=== PATIENT | male | born 1935 | race Caucasian/White ===

== ENCOUNTER 2018-08-29 13:37 | Emergency (ER) | payer MEDICARE, BC ==
[~2018-08-29] VITALS: Ht 170.2 cm; Wt 89.5 kg
[~2018-08-29 13:37] MED LIST: ATARAX10 MG PO; CARDURA 2MG2 MG PO; CENTRUM1 TAB PO; CIPRO XR500 MG PO; CLOPIDOGREL; DIAVAN; DIOVAN80 M1 PO; FISH OIL CONC1000 MG PO; FLOMAX 0.40.4 MG/CAP PO; LEVAQUIN 5500 MG/TAB PO; LIPITOR20 MG PO; PREDNISONE20 MG PO; SAW PALMETTO; VASOTEC5 MG PO; VITAMIN C500 MG PO; VITAMIN E-400200 IU PO; ZESTRIL40 MG PO; ZOCOR 20MG20 MG PO
[2018-08-29 13:58] VITALS: BP 188/82; PULSE 93; TEMP 98.7
[2018-08-29] MEDS ORDERED: CRESTOR20 MG PO (14:07)
[2018-08-29] MEDS ORDERED: CENTRUM SILVER1 CTB PO (14:08)
[2018-08-29] MEDS ORDERED: FLOMAX 0.40.4 MG/CAP PO (14:08)
[2018-08-29] MEDS ORDERED: VITAMIN D 1001000 IU (14:10)
[2018-08-29] MEDS ORDERED: CLARITIN-D 10 M1 T24 PO (14:10)
== END 2018-08-29 15:33 | disposition home or self-care (01) ==
LOC: COL.ER 13:37
DX: S62.632A Displaced fracture of distal phalanx of right middle finger, initial encounter for closed fracture (principal); W10.9XXA Fall (on) (from) unspecified stairs and steps, initial encounter; W22.8XXA Striking against or struck by other objects, initial encounter; Z79.02 Long term (current) use of antithrombotics/antiplatelets

== ENCOUNTER 2021-06-14 08:55 | Emergency (ER) | payer MEDICARE, BC ==
[~2021-06-14] VITALS: Ht 170.2 cm; Wt 74.5 kg
[~2021-06-14 08:55] MED LIST changes: +CENTRUM SILVER1 CTB PO; +CLARITIN-D 10 M1 T24 PO; +CRESTOR20 MG PO; +VITAMIN D31000 I1 PO
[2021-06-14 09:16] VITALS: TEMP 98.1
[2021-06-14 10:11] LABS: BASO % 0.1 % (0.0-2.0); EOS % 0.1 % (0-4.0); GRAN # 7.8 K/mm3 (1.4-6.5); GRAN % 81.8 % (42.2-75.2); HEMATOCRIT 42.2 % (42.0-52.0); HEMOGLOBIN 14.2 g/dl (13.5-18.0); LYMPH # 1.2 K/mm3 (1.2-3.4); LYMPH % 12.3 % (20.0-51.0); MEAN CELL VOLUME 96 fl (80.0-100.0); MEAN CORPUSCULAR HEMOGLOBIN 32 pg (27.0-31.0); MEAN CORPUSCULAR HGB CONC 34 g/dl (33.0-37.0); MEAN PLATELET VOLUME 10.3 fl (7.4-10.4); MONO # 0.5 K/mm3 (0.1-0.6); MONO % 5.4 % (1.7-9.3); PLATELET COUNT 139 K/mm3 (130-400); RED BLOOD COUNT 4.41 M/mm3 (4.20-5.60); REDCELL DISTRIBUTION WIDTH-CV 13.1 % (11.5-14.5)
[2021-06-14 10:15] LABS: PROTHROMBIN TIME 10.9 SECONDS (9.7-12.8)
[2021-06-14 10:17] LABS: PARTIAL THROMBOPLASTIN TIME 25.3 SECONDS (26.0-37.0)
[2021-06-14 10:27] LABS: ALBUMIN 3.6 gm/dL (3.4-4.8); BILIRUBIN,TOTAL 0.8 mg/dL (0.2-1.2); CALCIUM 9.9 mg/dL (8.4-10.2); CREATININE, serum 1.57 mg/dL (0.72-1.25); POTASSIUM 4.5 mmol/L (3.5-4.5); TOTAL PROTEIN 6.7 gm/dL (6.2-8.1)
[2021-06-14 10:34] LABS: TROPONIN-I 0.036 ng/mL (0.00-0.033)
[2021-06-14 13:30] VITALS: BP 130/82; PULSE 70
[2021-06-14] MEDS ORDERED: BALSALAZIDE DI750 MG PO (21:16)
[2021-06-14] MEDS ORDERED: PLAVIX 75MG TAB75 MG PO (21:18)
[2021-06-14] MEDS ORDERED: CRESTOR20 MG PO (21:18)
[2021-06-14] MEDS ORDERED: GLUCOPHAGE XR500 M1 PO (21:19)
[2021-06-14] MEDS ORDERED: ZESTRIL30 MG PO (21:19)
[2021-06-14] MEDS ORDERED: FLOMAX 0.40.4 MG/CAP PO (21:20)
[2021-06-14] MEDS ORDERED: PREDNISONE 5MG5 MG PO (21:24)
== END 2021-06-14 13:30 | disposition home or self-care (01) ==
LOC: COL.ER 08:55
PROVIDERS: Family Medicine
DX: E86.0 Dehydration (principal); R55 Syncope and collapse; I10 Essential (primary) hypertension; E11.9 Type 2 diabetes mellitus without complications; Z79.899 Other long term (current) drug therapy

== ENCOUNTER 2021-06-14 15:14 | Observation (INO) | payer MEDICARE, BC ==
[~2021-06-14] VITALS: Ht 170.2 cm; Wt 74.5 kg
[2021-06-14 16:11] LABS: EOS % 0.1 % (0-4.0); GRAN # 7.1 K/mm3 (1.4-6.5); GRAN % 86.2 % (42.2-75.2); HEMATOCRIT 42.2 % (42.0-52.0); HEMOGLOBIN 14.3 g/dl (13.5-18.0); LYMPH # 0.7 K/mm3 (1.2-3.4); LYMPH % 8.2 % (20.0-51.0); MEAN CELL VOLUME 96 fl (80.0-100.0); MEAN CORPUSCULAR HEMOGLOBIN 32 pg (27.0-31.0); MEAN CORPUSCULAR HGB CONC 34 g/dl (33.0-37.0); MEAN PLATELET VOLUME 10.1 fl (7.4-10.4); MONO # 0.4 K/mm3 (0.1-0.6); PLATELET COUNT 126 K/mm3 (130-400); RED BLOOD COUNT 4.41 M/mm3 (4.20-5.60)
[2021-06-14 16:27] LABS: ALBUMIN 3.6 gm/dL (3.4-4.8); CREATININE, serum 1.52 mg/dL (0.72-1.25); POTASSIUM 4.6 mmol/L (3.5-4.5); TOTAL PROTEIN 6.8 gm/dL (6.2-8.1)
[2021-06-14 16:34] LABS: TROPONIN-I 0.04 ng/mL (0.00-0.033)
[2021-06-14] MEDS ORDERED: BALSALAZIDE DI750 MG PO (21:16)
[2021-06-14] MEDS ORDERED: CRESTOR20 MG PO (21:18)
[2021-06-14] MEDS ORDERED: PLAVIX 75MG TAB75 MG PO (21:18)
[2021-06-14] MEDS ORDERED: GLUCOPHAGE XR500 M1 PO (21:19)
[2021-06-14] MEDS ORDERED: ZESTRIL30 MG PO (21:19)
[2021-06-14] MEDS ORDERED: FLOMAX 0.40.4 MG/CAP PO (21:20)
[2021-06-14] MEDS ORDERED: PREDNISONE 5MG5 MG PO (21:24)
[2021-06-14 21:54] LABS: INR 2.2 (0.8-3.0); PROTHROMBIN TIME 24.3 SECONDS (9.7-12.8)
[2021-06-14 23:24] VITALS: BP 126/55; PULSE 63; TEMP 98.4
--- NOTE | 2021-06-15 01:22 | NUR ---
THIS RN CALLED AT 0123 TO REPORT CRITICAL TROPONIN TO PROVIDER, PROVIDER, CRISTIAN, IN COVID ROOM. LEFT MESSAGE WITH ANDREA, SAID WILL CALL BACK.
[2021-06-15 03:14] VITALS: BP 122/62; PULSE 63; TEMP 98.8
--- NOTE | 2021-06-15 05:07 | NUR ---
PT ARRIVED TO FLOOR VIA WHEELCHAIR FROM ED. PT WALKED FROM WHEELCHAIR TO BED. PT REMAINED PLEASANT ALL NIGHT, TOOK ALL MEDICATIONS AND WAS COMPLIANT WITH CARE. PT IS NPO SINCE MIDNIGHT. HAS URINAL AT BEDSIDE. PT SLEPT MOST OF NIGHT, ONLY WAKING TO USE URINAL. CALL LIGHT IN REACH, URINAL IN REACH. NO OTHER NEEDS AT THIS TIME. PT NSR ON TELE, RA, DENIES SOB, CHEST PAIN OR DIZZINESS. HAS NOT HAD SYNCOPAL EPISODE, OR SVT SINCE ON FLOOR.
[2021-06-15 07:59] LABS: HEMATOCRIT 38.8 % (42.0-52.0); HEMOGLOBIN 13.2 g/dl (13.5-18.0); MEAN CELL VOLUME 96 fl (80.0-100.0); MEAN CORPUSCULAR HEMOGLOBIN 33 pg (27.0-31.0); MEAN CORPUSCULAR HGB CONC 34 g/dl (33.0-37.0); MEAN PLATELET VOLUME 10.2 fl (7.4-10.4); PLATELET COUNT 127 K/mm3 (130-400); RED BLOOD COUNT 4.06 M/mm3 (4.20-5.60); REDCELL DISTRIBUTION WIDTH-CV 13.1 % (11.5-14.5)
[2021-06-15 08:04] VITALS: BP 127/50; PULSE 59; TEMP 97.5
[2021-06-15 08:17] LABS: TROPONIN-I 0.091 ng/mL (0.00-0.033)
[2021-06-15 08:41] LABS: CALCIUM 9.5 mg/dL (8.4-10.2); CREATININE, serum 1.17 mg/dL (0.72-1.25); POTASSIUM 4.9 mmol/L (3.5-4.5)
[2021-06-15 09:21] LABS: BAND 10 % (0-10); LYMPHOCYTE 6 % (20.0-51.0); NEUTROPHILS 83 % (42.0-75.2); PLATELET ESTIMATE DECREASED (NORMAL); TEAR DROP CELLS 1+
[2021-06-15 11:06] LABS: CHOLESTEROL RISK RATIO 2.3
[2021-06-15 12:00] VITALS: BP 125/57; PULSE 62; TEMP 97.7
--- NOTE | 2021-06-15 15:20 | NUR ---
Manager Multimedia met with patient to discuss discharge planning. Patient lives in [place] with his , Crystal (ph#[phone]) who is at bedside. Patient sees Dr. Marie for primary care and obtains medications from [facility] with no difficulties. Patient does not use any DME and reports independence with [facility]. Patient states he has completed DPOA-HC which is included in his will. Patient states he plans to return home upon discharge. KIMBERLY contacted [facility]arr[facility] and requested PT/OT orders. Discharge Plan: Home pending PT/OT messi
[2021-06-15 16:00] VITALS: BP 133/51; PULSE 67; TEMP 98.5
--- NOTE | 2021-06-15 17:40 | NUR ---
Patient laying in bed watching TV. A&Ox4. VSS. IV CDI, fluids infusing. Denies dizziness, pain and discomfort. No further needs expressed. Call light within reach.
[2021-06-15 19:11] VITALS: BP 143/48; PULSE 67; TEMP 97.9
--- NOTE | 2021-06-15 19:11 | NUR ---
PT LAYING IN BED. CALL LIGHT IN REACH. REMOVED DINNER TRAY. NO OTHER NEEDS AT THIS TIME.
--- NOTE | 2021-06-15 21:38 | NUR ---
PT IS PLEASANT AND COOPERATIVE. PT ASSESSMENT COMPLETED. NS IS RUNNING TO LEFT FOREARM AT 100 ML/HR. PT ASKED QUESTIONS ABOUT INSULIN USE AND IF IT WAS TO BE CONTINUED AFTER DISCHARGE. THIS RN EDUCATED PT ABOUT DURING HOSPITAL STAYS, THAT METFORMIN IS HELD AND SLIDING SCALE INSULIN IS USED. PT VERBALIZED UNDERSTANDING. PT VERBALIZED UNDERSTANDING ABOUT NEW BETA MARYAM MEDICATION AND THAT THIS MEDICATION WILL LIKELY BE PRESCRIBED TO HIM AFTER DISCHARGE AND THAT PRESCRIPTION WILL BE SENT TO HIS PREFERRED PHARMACY. PT DENIES ANY DIZZINESS, SYNCOPAL EPISODES OR PAIN. TELEMETRY SHOES PT IS STILL IN NORMAL SINUS RHTHYM. CALL LIGHT IS IN REACH, BED IN LOWEST POSITION, WHEELS LOCKED, CLUTTER FREE. PT HAS NO OTHER NEEDS AT THIS TIME.
[2021-06-15 23:32] VITALS: BP 121/53; PULSE 55; TEMP 98.2
[2021-06-16] VITALS (7 sets, daily range): BP systolic 108–146; BP diastolic 46–60; PULSE 51–111; TEMP 97.7–98.7
--- NOTE | 2021-06-16 05:20 | NUR ---
PT HAD UNEVENTFUL NIGHT, PT SLEPT ALL NIGHT WITH NO COMPLAINTS. PT DENIES DIZZINESS, LIGHTHEADNESS, CHEST PAINS, SOA OR ANY PAIN. PT HAS BEEN PLEASANT AND TOOK ALL MEDICATIONS PRESCRIBED.NS IS RUNNING AT 100 ML/HR INTO LEFT WRIST IV. PT SHOWED NO NEURO CHANGES. BED IN LOWEST POSITION, WHEELS LOCKED, CALL LIGHT IN REACH. NO NEEDS AT THIS TIME.
[2021-06-16 07:03] LABS: GRAN # 4.7 K/mm3 (1.4-6.5); GRAN % 80.2 % (42.2-75.2); HEMOGLOBIN 11.5 g/dl (13.5-18.0); LYMPH # 0.9 K/mm3 (1.2-3.4); LYMPH % 14.7 % (20.0-51.0); MEAN CELL VOLUME 96 fl (80.0-100.0); MEAN CORPUSCULAR HEMOGLOBIN 32 pg (27.0-31.0); MEAN CORPUSCULAR HGB CONC 34 g/dl (33.0-37.0); MEAN PLATELET VOLUME 10.4 fl (7.4-10.4); MONO # 0.3 K/mm3 (0.1-0.6); MONO % 4.8 % (1.7-9.3); PLATELET COUNT 114 K/mm3 (130-400); RED BLOOD COUNT 3.57 M/mm3 (4.20-5.60); REDCELL DISTRIBUTION WIDTH-CV 13.1 % (11.5-14.5)
[2021-06-16 07:18] LABS: CALCIUM 8.9 mg/dL (8.4-10.2); CREATININE, serum 1.14 mg/dL (0.72-1.25); POTASSIUM 4.7 mmol/L (3.5-4.5)
[2021-06-16 07:21] LABS: HEMATOCRIT 34.2 % (42.0-52.0)
--- NOTE | 2021-06-16 20:30 | NUR ---
Initial shift assessment done- denies pain/SOB, denies dizziness, lightheadedness, VSS, Tele on, Apical pulse 68/regular. Denies need for a snack tonight.
[2021-06-17 04:28] VITALS: BP 122/40; PULSE 57; TEMP 98
--- NOTE | 2021-06-17 05:36 | NUR ---
Quiet night- no dizziness, up to bathroom ,steady on feet. VSS
[2021-06-17 06:57] LABS: GRAN # 4.5 K/mm3 (1.4-6.5); GRAN % 81.7 % (42.2-75.2); HEMATOCRIT 37.9 % (42.0-52.0); HEMOGLOBIN 12.6 g/dl (13.5-18.0); LYMPH # 0.8 K/mm3 (1.2-3.4); LYMPH % 13.7 % (20.0-51.0); MEAN CELL VOLUME 98 fl (80.0-100.0); MEAN CORPUSCULAR HEMOGLOBIN 33 pg (27.0-31.0); MEAN CORPUSCULAR HGB CONC 33 g/dl (33.0-37.0); MEAN PLATELET VOLUME 10.8 fl (7.4-10.4); MONO # 0.2 K/mm3 (0.1-0.6); MONO % 4.2 % (1.7-9.3); PLATELET COUNT 118 K/mm3 (130-400); RED BLOOD COUNT 3.87 M/mm3 (4.20-5.60); REDCELL DISTRIBUTION WIDTH-CV 13.3 % (11.5-14.5)
[2021-06-17 07:08] LABS: CALCIUM 9.3 mg/dL (8.4-10.2); CREATININE, serum 1.11 mg/dL (0.72-1.25); POTASSIUM 4.4 mmol/L (3.5-4.5)
[2021-06-17 07:25] VITALS: BP 129/61; PULSE 98; TEMP 98.1
[2021-06-17] MEDS ORDERED: ASPIRIN E.C. 8181 MG PO (07:41)
[2021-06-17] MEDS ORDERED: LOPRESSOR 225 MG/TAB PO (07:41)
== END 2021-06-17 12:25 | disposition home or self-care (01) ==
LOC: COL.ER 15:14 → MEDICAL 20:06
PROVIDERS: Emergency Medicine; Nurse Practitioner Family; Student in an Organized Health Care Education/Training Program; ADMIT Internal Medicine
DX: R55 Syncope and collapse (principal); I21.4 Non-ST elevation (NSTEMI) myocardial infarction; I47.1 Supraventricular tachycardia; E87.5 Hyperkalemia; R73.9 Hyperglycemia, unspecified; N40.0 Benign prostatic hyperplasia without lower urinary tract symptoms; K51.90 Ulcerative colitis, unspecified, without complications; R91.1 Solitary pulmonary nodule; I12.9 Hypertensive chronic kidney disease with stage 1 through stage 4 chronic kidney disease, or unspecified chronic kidney disease; N18.9 Chronic kidney disease, unspecified; E78.5 Hyperlipidemia, unspecified; Z79.02 Long term (current) use of antithrombotics/antiplatelets; Z79.899 Other long term (current) drug therapy; Z79.51 Long term (current) use of inhaled steroids; Z87.891 Personal history of nicotine dependence; Z79.84 Long term (current) use of oral hypoglycemic drugs
CPT/HCPCS: 99233-AI; 99239; G0378; J1644; J1815; J7030; J7512; Q9967